=== PATIENT | male | born 1960 | race Caucasian/White ===

== ENCOUNTER 2017-10-30 16:44 | Emergency (ER) | payer OTHER ==
[~2017-10-30] VITALS: Ht 177.8 cm; Wt 90.0 kg
[2017-10-30 16:58] VITALS: BP 110/69
--- NOTE | 2017-10-30 17:57 | NUR ---
PT TAKEN TO BED 10.
--- NOTE | 2017-10-30 18:02 | NUR ---
56/M BIB FAMILY C/O PAIN AFTER VOIDING X 4 DAYS. DENIES FREQUENCY, URGENTY, OR HEMATURIA. C/O DYSURIA. SEEN IN URGENT [facility]ARE CLINIC X3 DAYS AGO. STATES WAS LEFT WITH PAIN TO SUPRPUBIC AND TESTICLES AFTER MANUAL EXAM. HX DM. RX METFORMIN 500MG QD, IBUPROFEN 600MG.
[2017-10-30 19:53] LABS: BILIRUBIN,URINE 1+ (NEGATIVE); BLOOD, URINE 2+ (NEGATIVE); LEUKOCYTE ESTERASE ,URINE TRACE (NEGATIVE); NITRITE, URINE NEGATIVE (NEGATIVE); PH,URINE 5.5 (5.0-9.0); UGLUCOSE 3+ (NEGATIVE)
[2017-10-30 19:54] LABS: APPEARANCE,URINE HAZY (CLEAR); COLOR,URINE AMBER (YELLOW)
[2017-10-30 20:06] LABS: RBC,URINE 3-10 (FEW) /HPF (0-5); WBC,URINE 80-100 /HPF (0-5)
--- NOTE | 2017-10-30 20:12 | NUR ---
Ultrasound at bedside.
--- NOTE | 2017-10-30 21:30 | NUR ---
Patient discharged with v/s stable. Written and verbal after care instructions given and explained. Patient alert, oriented and verbalized understanding of instructions. Ambulatory with steady gait. All questions addressed prior to discharge. ID band removed. Patient advised to follow up with PMD. Rx of IBUPROFEN AND CIPROFLAXACIN given. Patient educated on indication of medication including possible reaction and side effects. Opportunity to ask questions provided and answered.
[2017-10-30 21:35] VITALS: BP 107/72
== END 2017-10-30 21:30 | disposition home or self-care (01) ==
LOC: MED 16:44
DX: N39.0 Urinary tract infection, site not specified (principal); E11.9 Type 2 diabetes mellitus without complications; I10 Essential (primary) hypertension; Z88.0 Allergy status to penicillin
CPT/HCPCS: 76870; 81001; 82948; 87086; 99285; Q0092

== ENCOUNTER 2021-09-30 06:10 | Emergency (ER) | payer SELFPAY ==
[~2021-09-30] VITALS: Ht 177.8 cm; Wt 81.6 kg
[2021-09-30 06:19] VITALS: BP 154/96
--- NOTE | 2021-09-30 06:24 | NUR ---
TO LOBBY FOLLOWING TRIAGE
[2021-09-30] MEDS ORDERED: CLIN300C2 PO ×3 (06:36→06:42)
[2021-09-30 06:44] VITALS: BP 154/96
--- NOTE | 2021-09-30 06:44 | NUR ---
Patient discharged with v/s stable. Written and verbal after care instructions given and explained BY DR. CIFUENTES Patient verbalized understanding. Ambulatory with steady gait. All questions addressed prior to discharge. Advised to follow up with PMD.
== END 2021-09-30 06:44 | disposition home or self-care (01) ==
LOC: MED 06:10
DX: E11.621 Type 2 diabetes mellitus with foot ulcer (principal); L97.519 Non-pressure chronic ulcer of other part of right foot with unspecified severity; I10 Essential (primary) hypertension; Z79.2 Long term (current) use of antibiotics; Z88.0 Allergy status to penicillin
CPT/HCPCS: 99283

== ENCOUNTER 2023-04-27 17:03 | Emergency (ER) | payer MEDICAID, OTHER ==
[~2023-04-27] VITALS: Ht 162.6 cm; Wt 90.7 kg
[~2023-04-27 17:03] MED LIST: CLIN300C2 PO
[2023-04-27 17:34] VITALS: BP 125/88; PULSE 98; RESP 18; TEMP 97.8; O2SAT 98
[2023-04-27 18:27] LABS: BASOPHILS # (AUTO) 0.1 K/uL (0.00-0.22); BASOPHILS % (AUTO) 0.9 % (0.0-2.0); EOSINOPHILS # (AUTO) 0.3 K/uL (0-0.4); EOSINOPHILS % (AUTO) 4.3 % (0.0-4.0); HEMOGLOBIN 13.3 g/dL (12.0-18.0); LYMPHOCYTES # (AUTO) 1.9 K/uL (2.0-11.5); LYMPHOCYTES % (AUTO) 30.1 % (20.5-51.1); MEAN CORPUSCULAR HEMOGLOBIN 31 pg (27-31); MEAN CORPUSCULAR HGB CONC 34 g/dL (33-37); MONOCYTES # (AUTO) 0.7 K/uL (0.8-1.0); MONOCYTES % (AUTO) 10.9 % (1.7-9.3); NEUTROPHILS # (AUTO) 3.4 K/uL (1.8-7.7); NEUTROPHILS % (AUTO) 53.8 % (42.2-75.2); PLATELET COUNT (AUTO) 166 K/uL (140-450); RED BLOOD CELL COUNT(AUTO) 4.33 MIL/uL (4.20-6.10); RED CELL DISTRIBUTION WIDTH 13.2 % (11.6-13.7); WHITE BLOOD COUNT (AUTO) 6.4 K/uL (4.8-10.8)
[2023-04-27 18:41] LABS: INR 0.98 (0.8-1.2); PARTIAL THROMBOPLASTIN TIME 25.2 secs (22-35.6); PROTHROMBIN TIME 10.3 secs (10.8-13.4)
[2023-04-27 18:43] LABS: ALANINE AMINOTRANSFERASE 32 U/L (12-78); ALBUMIN 3.2 g/dL (3.4-5.0); ALKALINE PHOSPHATASE 92 U/L (50-136); ANION GAP 10.2 (8-16); ASPARTATE AMINOTRANSFERASE 27 U/L (15-37); CALCIUM 8.4 mg/dL (8.5-10.1); CHLORIDE 102 mmol/L (98-107); CREATININE 1.5 mg/dL (0.6-1.3); GFR ARICAN-AMERICAN 61 mL/min (>90); GFR NON ARICAN-AMERICAN 50 mL/min (>90); GLUCOSE 380 mg/dL (74-106); POTASSIUM 4.2 mmol/L (3.5-5.1); SODIUM SERUM 134 mmol/L (136-145); TOTAL BILIRUBIN 0.4 mg/dL (0.0-1.0); TOTAL PROTEIN, SERUM 7.3 g/dL (6.4-8.2); UREA NITROGEN, BLOOD 27 mg/dL (7-18)
[2023-04-27 18:48] LABS: ACETONE, SERUM NEGATIVE (NEGATIVE); LACTIC ACID 1.4 mmol/L (0.4-2.0)
[2023-04-27] MEDS ORDERED: INSULIN REGULAR, HUMAN 100 UNIT/ML VIAL SUBQ ONE (19:10)
[2023-04-27] MEDS ORDERED: NACL 0.9% 1,000 ML IV ONE (19:10)
[2023-04-27] MEDS ORDERED: SULFAMETH/TRIMETH DS 800/160MG 1 TAB PO ONE (19:30)
[2023-04-27] MEDS ORDERED: SULF-59 PO (19:50)
[2023-04-27 20:22] LABS: APPEARANCE,URINE CLEAR (CLEAR); BILIRUBIN,URINE NEGATIVE (NEGATIVE); BLOOD, URINE 2+ (NEGATIVE); COLOR,URINE YELLOW (YELLOW); LEUKOCYTE ESTERASE ,URINE NEGATIVE (NEGATIVE); NITRITE, URINE NEGATIVE (NEGATIVE); PROTEIN,URINE NEGATIVE (NEGATIVE); UGLUCOSE 3+ (NEGATIVE); UROBILINOGEN,URINE 0.2 EU/dL (0.2 - 1)
[2023-04-27 20:38] LABS: BACTERIA,URINE FEW /HPF (None Seen); SQUAMOUS EPITHELIAL CELL,UR 0-3 (FEW) /LPF (0-3 (FEW)); WBC,URINE 0-5 /HPF (0-5)
[2023-04-27 20:40] VITALS: BP 156/93; PULSE 80; RESP 12; TEMP 98; O2SAT 98
== END 2023-04-27 20:40 | disposition home or self-care (01) ==
LOC: MED 17:03
DX: E11.621 Type 2 diabetes mellitus with foot ulcer (principal); N17.9 Acute kidney failure, unspecified; Z79.4 Long term (current) use of insulin; Z79.899 Other long term (current) drug therapy
CPT/HCPCS: 36415; 73630; 80053; 81001; 82009; 83605; 85025; 85610; 85730; 87040; 87086; 96360; 99284; J1815; J7030

== ENCOUNTER 2024-06-13 13:48 | Emergency (ER) | payer OTHER ==
[~2024-06-13] VITALS: Ht 170.2 cm; Wt 100.5 kg
[~2024-06-13 13:48] MED LIST changes: +SULF-59 PO
[2024-06-13 14:00] VITALS: BP 137/77; PULSE 112; RESP 18; TEMP 97.9; O2SAT 99
[2024-06-13] MEDS ORDERED: BACI-418 TP (15:36)
[2024-06-13] MEDS: BACITRACIN OINT 500 UNITS/GM PKT TP ONE (15:40)
[2024-06-13 16:03] VITALS: BP 136/70; PULSE 112; RESP 18; TEMP 97.9; O2SAT 99
== END 2024-06-13 16:02 | disposition home or self-care (01) ==
LOC: MED 13:48
DX: S90.31XA Contusion of right foot, initial encounter (principal); I10 Essential (primary) hypertension; E78.5 Hyperlipidemia, unspecified; E11.9 Type 2 diabetes mellitus without complications; Z89.431 Acquired absence of right foot; Z88.0 Allergy status to penicillin; W22.8XXA Striking against or struck by other objects, initial encounter; Y93.89 Activity, other specified; Y92.89 Other specified places as the place of occurrence of the external cause; Y99.8 Other external cause status
CPT/HCPCS: 99282